=== PATIENT | male | born 1990 | race Caucasian/White ===

== ENCOUNTER 2017-12-22 13:49 | Emergency (ER) | payer MEDICAID ==
[~2017-12-22] VITALS: Ht 175.3 cm; Wt 50.0 kg
[~2017-12-22 13:49] MED LIST: ARIP15TA3 PO; BACDS PO; CEPH500C2 PO; LITHIUM PO
[2017-12-22] MEDS ORDERED: DOXY100C43 PO (17:04)
[2017-12-22 17:25] VITALS: BP 145/71
== END 2017-12-22 17:31 | disposition home or self-care (01) ==
LOC: ER 13:50
DX: L03.113 Cellulitis of right upper limb (principal); R21 Rash and other nonspecific skin eruption; F15.10 Other stimulant abuse, uncomplicated; Z88.0 Allergy status to penicillin; Z79.899 Other long term (current) drug therapy
CPT/HCPCS: 73090; 99284

== ENCOUNTER 2017-12-24 16:40 | Emergency (ER) | payer MEDICAID ==
[~2017-12-24] VITALS: Ht 584.7 cm; Wt 59.1 kg
[~2017-12-24 16:40] MED LIST changes: +DOXY100C43 PO
[2017-12-24 17:21] LABS: BASOPHILS % (AUTO) 0.4 % (0-1); EOSINOPHILS # (AUTO) 0.2 X10'3 (0-0.9); EOSINOPHILS % (AUTO) 4.1 % (0-6); HEMATOCRIT 42.8 % (42.0-52.0); HEMOGLOBIN 14.7 g/dl (14.0-17.9); LYMPHOCYTES # (AUTO) 1.5 X10'3 (1.1-4.8); LYMPHOCYTES % (AUTO) 25.2 % (21-51); MEAN CORPUSCULAR HEMOGLOBIN 29.8 PG (27.0-31.0); MEAN CORPUSCULAR HGB CONC 34.4 % (33.0-36.5); MEAN CORPUSCULAR VOLUME 86.6 FL (78-98); MONOCYTES # (AUTO) 0.7 X10'3 (0-0.9); MONOCYTES % (AUTO) 10.9 % (2-12); NEUTROPHILS # (AUTO) 3.6 X10'3 (1.8-7.7); NEUTROPHILS % (AUTO) 59.4 % (42-75); PLATELET COUNT 230 X10'3 (140-440); RED BLOOD COUNT 4.94 X10'6 (4.70-6.10); RED CELL DISTRIBUTION WIDTH 13.4 % (11.5-14.5); WHITE BLOOD COUNT 6.1 X10'3 (4.5-11.0)
[2017-12-24 17:38] LABS: ALANINE AMINOTRANSFERASE 40 U/L (12-78); ALBUMIN 3.6 G/DL (3.4-5.0); ALBUMIN/GLOBULIN RATIO 1.2 (1.1-1.5); ALKALINE PHOSPHATASE 69 IU/L (46-116); ANION GAP 8 (8-16); ASPARTATE AMINO TRANSFERASE 36 U/L (10-37); BILIRUBIN,TOTAL 0.5 MG/DL (0.1-1.0); BLOOD UREA NITROGEN 18 MG/DL (7-18); BUN/CREATININE RATIO 18.8 (5.4-32.0); CALCIUM 8.7 MG/DL (8.5-10.1); CHLORIDE 106 MMOL/L (99-107); CREATININE 0.96 MG/DL (0.60-1.10); GLUCOSE 96 MG/DL (70-104); POTASSIUM 4.1 MMOL/L (3.5-5.1); SODIUM 142 MMOL/L (135-145); TOTAL CARBON DIOXIDE 27.9 MMOL/L (24-32); TOTAL PROTEIN 6.7 G/DL (6.4-8.2); eGFR > 90 ML/MIN
[2017-12-24 17:45] LABS: CLARITY,URINE SLIGHTLY CLOUDY (Clear); COLOR,URINE YELLOW (Yellow); GLUCOSE, URINE NEGATIVE (Neg); KETONES,URINE NEGATIVE (Neg); LEUKOCYTE ESTERASE ,URINE TRACE (Neg); NITRITES, URINE NEGATIVE (Neg); OCCULT BLOOD,URINE NEGATIVE (Neg); PROTEIN,URINE NEGATIVE (Neg)
[2017-12-24 17:46] LABS: UA COLLECTION TYPE CLN CATCH MIDSTREAM
[2017-12-24 17:46] LABS: ETHANOL < 0.010 GM/DL (0.0-0.010)
[2017-12-24 17:57] LABS: URINE AMPHETAMINE SCREEN POSITIVE (Neg); URINE BARBITUATE SCREEN NEGATIVE (Neg); URINE BENZODIAZEPINES SCREEN NEGATIVE (Neg); URINE CANNABINOID SCREEN POSITIVE (Neg); URINE COCAINE SCREEN NEGATIVE (Neg); URINE METHADONE SCREEN NEGATIVE (Neg); URINE OPIATE SCREEN NEGATIVE (Neg); URINE PHENCYCLIDINE SCREEN NEGATIVE (Neg)
[2017-12-24 18:04] LABS: BACTERIA,URINE FEW /HPF (Neg); MUCUS STRANDS MANY /LPF (Neg); RBC,URINE NONE SEEN /HPF (0-2); SQUAMOUS EPITHELIAL CELL,UR FEW /LPF (FEW)
[2017-12-24 18:33] LABS: WBC CLUMPS,URINE FEW /HPF (NEGATIVE)
[2017-12-24] MEDS ORDERED: cephalexin 250mg capsule PO ONE (21:15)
[2017-12-24] MEDS ORDERED: DOXY100C43 PO (22:40)
[2017-12-24] MEDS ORDERED: aripiprazole 5mg tablet PO SCH (22:58)
[2017-12-24] MEDS: doxycycline hyclate 100mg tablet.DR PO SCH (23:34)
[2017-12-24] MEDS ORDERED: aripiprazole 5mg tablet PO ONE (23:55)
[2017-12-25] MEDS: doxycycline hyclate 100mg tablet.DR PO SCH ×2 (08:10→17:51)
[2017-12-25] MEDS ORDERED: LORazepam 2 mg/ml vial IM ONE (10:10)
[2017-12-25] MEDS ORDERED: haloperidol lactate 5mg/ml inj IM ONE (10:10)
[2017-12-25] MEDS ORDERED: diphenhydrAMINE 50 mg/ml inj IM ONE (10:10)
[2017-12-25 20:07] VITALS: BP 136/70
[2017-12-25] MEDS ORDERED: aripiprazole 5mg tablet PO SCH (21:00)
== END 2017-12-25 20:10 ==
LOC: ER 16:40
DX: F20.9 Schizophrenia, unspecified (principal); F31.9 Bipolar disorder, unspecified; R45.851 Suicidal ideations; R45.850 Homicidal ideations; N39.0 Urinary tract infection, site not specified; F19.10 Other psychoactive substance abuse, uncomplicated; F15.10 Other stimulant abuse, uncomplicated; Z88.0 Allergy status to penicillin; Z79.899 Other long term (current) drug therapy
CPT/HCPCS: 36415; 80053; 80305; 80320; 81001; 84443; 85025; 87491; 87591; 96372; 99285; J1200; J1630; J2060

== ENCOUNTER 2018-01-03 16:21 | Emergency (ER) | payer MEDICAID ==
[~2018-01-03] VITALS: Ht 170.2 cm; Wt 59.0 kg
[~2018-01-03 16:21] MED LIST changes: -BACDS PO; -CEPH500C2 PO; -LITHIUM PO
[2018-01-03 16:28] VITALS: BP 130/92
[2018-01-03] MEDS ORDERED: IBUP-1984 PO (16:44)
[2018-01-03] MEDS ORDERED: ibuprofen tablet 400 MG TABLET PO ONE (16:45)
== END 2018-01-03 16:55 | disposition home or self-care (01) ==
LOC: ER 16:22
DX: M79.672 Pain in left foot (principal); F15.90 Other stimulant use, unspecified, uncomplicated; Z88.0 Allergy status to penicillin; Z79.899 Other long term (current) drug therapy
CPT/HCPCS: 99282

== ENCOUNTER 2018-01-31 20:41 | Emergency (ER) | payer MEDICAID ==
[~2018-01-31] VITALS: Ht 170.2 cm; Wt 58.0 kg
[~2018-01-31 20:41] MED LIST changes: +IBUP-1984 PO
[2018-01-31 20:47] VITALS: BP 132/84
[2018-01-31] MEDS ORDERED: ARIP30TA7 PO ×2 (22:19→22:24)
== END 2018-01-31 22:30 | disposition home or self-care (01) ==
LOC: ER 20:41
DX: F20.9 Schizophrenia, unspecified (principal); F31.9 Bipolar disorder, unspecified; F15.90 Other stimulant use, unspecified, uncomplicated; Z76.0 Encounter for issue of repeat prescription; Z88.0 Allergy status to penicillin; Z79.899 Other long term (current) drug therapy
CPT/HCPCS: 99283